=== PATIENT | female | born 1955 | race Caucasian/White ===

== ENCOUNTER 2017-06-07 11:30 | Inpatient (IN) | payer MEDICAID, OTHER ==
[2017-06-07 13:21] LABS: Hematocrit 42.1 % (30.3-42.9); Hemoglobin 13.3 gm/dl (10.1-14.3); Mean Corpuscular HGB Conc 32 % (30-34); Mean Corpuscular Hemoglobin 27 pg (28-32); Mean Corpuscular Volume 86 fl (79-97); Platelet Count 285 K/mm3 (140-440); Red Blood Count 4.93 M/mm3 (3.65-5.03)
[2017-06-07 13:46] LABS: Alanine Aminotransferase 23 units/L (7-56); Albumin 3.8 g/dL (3.9-5); BUN/Creatinine Ratio 22; Blood Urea Nitrogen 13 mg/dL (7-17); Calcium 8.9 mg/dL (8.4-10.2); Hemolysis Index 4; Lipase 32 units/L (13-60)
--- NOTE | 2017-06-07 14:42 | Emergency Department Report ---
- General Chief complaint: Weakness Stated complaint: DIZZINESS Time Seen by Provider: 06/07/17 14:36 Source: family Mode of arrival: Wheelchair Limitations: Language Barrier - History of Present Illness Initial comments: Patient is 61-year-old female that presents emergency room with complaints of dizziness weakness and nausea vomiting 1 week. is at bedside due to leg which barrier. Per patient and patient has not been able to hold any fluids or food down times one week. Patient states he saw her primary care twice and since this started. Patient states yesterday she was given medications of Zofran and Reglan and prednisolone and symptoms have not improved and patient continues to not be able to tolerate by mouth intake. Patient denies past medical history. Patient denies chest pain shortness of breath. Patient denies falls. Patient complains of a headache at 2 out of 10. MD Complaint: generalized weakness -: Sudden Severity: mild (headache) Severity scale (0 -10): 2 Improves with: rest Worsens with: movement, other (by mouth intake) Associated Symptoms: headaches, nausea/vomiting. denies: chest pain, confusion , dark stools, diaphoresis, dysuria, easy bruising, fever/chills, loss of appetite, myalgias, rash, shortness of breath, syncope - Related Data Allergies Allergy/AdvReac Type Severity Reaction Status Date / Time No Known Allergies Allergy Unverified 06/07/17 12:22 ED Review of Systems ROS: Stated complaint: DIZZINESS Other details as noted in HPI Comment: All other systems reviewed and negative Constitutional: weakness. denies: chills, fever Eyes: denies: eye pain, eye discharge, vision change ENT: denies: ear pain, throat pain Respiratory: denies: cough, shortness of breath, wheezing Cardiovascular: denies: chest pain, palpitations Endocrine: no symptoms reported Gastrointestinal: nausea, vomiting. denies: abdominal pain, diarrhea Genitourinary: denies: urgency, dysuria, discharge Musculoskeletal: denies: back pain, joint swelling, arthralgia Skin: denies: rash, lesions Neurological: headache, weakness. denies: paresthesias Psychiatric: denies: anxiety, depression Hematological/Lymphatic: denies: easy bleeding, easy bruising ED Past Medical Hx - Past Medical History Previous Medical History?: No - Surgical History Past Surgical History?: Yes Additional Surgical History: inguinal hernia repair - Family History Family history: no significant - Social History Smoking Status: Never Smoker Substance Use Type: None ED Physical Exam - General Limitations: Physical Limitation General appearance: alert, in no apparent distress - Head Head exam: Present: atraumatic, normocephalic - Eye Eye exam: Present: normal appearance - ENT ENT exam: Present: mucous membranes moist - Neck Neck exam: Present: normal inspection - Respiratory Respiratory exam: Present: normal lung sounds bilaterally. Absent: respiratory distress - Cardiovascular Cardiovascular Exam: Present: regular rate, normal rhythm. Absent: systolic murmur, diastolic murmur, rubs, gallop - GI/Abdominal GI/Abdominal exam: Present: soft, normal bowel sounds - Extremities Exam Extremities exam: Present: normal inspection - Back Exam Back exam: Present: normal inspection - Neurological Exam Neurological exam: Present: alert, oriented X3 - Psychiatric Psychiatric exam: Present: normal affect, normal mood - Skin Skin exam: Present: warm, dry, intact, normal color. Absent: rash ED Course Vital Signs 06/07/17 06/07/17 06/07/17 12:10 14:22 16:08 Temperature 97.9 F 98.4 F Pulse Rate 68 66 Respiratory 16 16 9 L Rate Blood Pressure 167/76 Blood Pressure 134/80 [Left] O2 Sat by Pulse 99 99 Oximetry 06/07/17 06/07/17 06/07/17 16:15 16:25 16:30 Temperature Pulse Rate 66 69 Respiratory 13 16 13 Rate Blood Pressure 148/68 147/64 Blood Pressure [Left] O2 Sat by Pulse 100 99 Oximetry 06/07/17 06/07/17 06/07/17 16:45 17:03 17:15 Temperature Pulse Rate 78 66 66 Respiratory 13 21 17 Rate Blood Pressure 169/80 169/80 152/71 Blood Pressure [Left] O2 Sat by Pulse 100 100 100 Oximetry 06/07/17 06/07/17 06/07/17 17:30 17:45 18:17 Temperature Pulse Rate 69 77 71 Respiratory 18 15 16 Rate Blood Pressure 136/67 151/73 169/80 Blood Pressure [Left] O2 Sat by Pulse 100 99 100 Oximetry 06/07/17 06/07/17 18:30 18:45 Temperature Pulse Rate 69 66 Respiratory 14 14 Rate Blood Pressure 132/54 140/64 Blood Pressure [Left] O2 Sat by Pulse 98 97 Oximetry - Reevaluation(s) Reevaluation #1: Patient more awake . Will try by mouth challenge 06/07/17 17:28 Reevaluation #2: Patient did not tolerate by mouth challenge. 06/07/17 17:39 Reevaluation #3: All results discussed with patient. Patient agreed with plan of care and admission. Will admit patient to hospital for further evaluation and treatment. Hospitalist consulted. 06/07/17 17:40 ED Medical Decision Making - Lab Data Result diagrams: 06/07/17 12:32 06/07/17 12:32 - EKG Data -: EKG Interpreted by In EKG shows normal: sinus rhythm, axis, intervals, QRS complexes, ST-T waves Rate: normal - Radiology Data Radiology results: report reviewed CT results reviewed. - Medical Decision Making Patient 61-year-old female presented for intractable nausea vomiting. Will admit patient for further evaluation and treatment. - Differential Diagnosis gastroenteritis. Nausea/vomiting. Dizziness. Weakness. Critical care attestation.: If time is entered above; I have spent that time in minutes in the direct care of this critically ill patient, excluding procedure time. ED Disposition Clinical Impression: Intractable nausea and vomiting, Dizziness, Headache, Weakness, Gastroenteritis Disposition: 09 OP ADMIT IP TO THIS HOSP Is pt being admited?: Yes Does the pt Need Aspirin: No Condition: Serious Time of Disposition: 17:38
[2017-06-07 14:46] LABS: Anisocytosis 1+; Basophils % (Manual) 0 % (0.0-1.8); Eosinophils % (Manual) 0 % (0.0-4.3); Total Cells Counted 100
[2017-06-07 14:47] LABS: Platelet Estimate Consistent w Auto
--- NOTE | 2017-06-07 15:21 | Cat Scan Report ---
FINAL REPORT PROCEDURE: CT HEAD/BRAIN WO CON TECHNIQUE: Computerized tomography of the head was performed without contrast material. HISTORY: dizziness, weakness COMPARISON: No prior studies are available for comparison. FINDINGS: Brain: Brain density appears normal. No evidence of intracranial hemorrhage. No parenchymal hemorrhage, mass lesions or mass effect are seen. No abnormal extraxial fluid collects or masses are seen. Ventricles: Ventricles are normal size and are midline. Bone Windows: No evidence of skull fracture. Paranasal sinuses: Visualized portions appear clear. Mastoid air cells: Clear IMPRESSION: Negative examination
[2017-06-07] MEDS ORDERED: TORADOL IV ONE (15:31)
--- NOTE | 2017-06-07 15:45 | Cat Scan Report ---
FINAL REPORT PROCEDURE: CT ABDOMEN PELVIS WO CON TECHNIQUE: Computerized axial tomography of the abdomen and pelvis was performed without intravenous contrast. This study is performed without intravascular contrast material and its sensitivity for abdominal and pelvic pathology, including neoplasms, inflammation, abscess, free fluid, thrombosis, arterial dissection and infarction, is reduced compared with a contrast enhanced study. HISTORY: intractable n/v COMPARISON: No prior studies are available for comparison. FINDINGS: Lower Lung paredes: Minimal dependent atelectasis. Lung bases otherwise are clear. Upper Abdomen: Low-density nodules seen adjacent to the right side of the falciform ligament and a low-density nodule anterior aspect left lobe of the liver image 23 series 2 appear to represent small hepatic cyst. This could be confirmed with ultrasound if clinically indicated. The liver is otherwise unremarkable. The gallbladder, the adrenal glands, the pancreas and spleen are unremarkable. Kidneys, Ureters and Urinary bladder: There is a nonobstructing calculus in the upper 3rd of the left kidney posterior laterally measuring 3.2 millimeter. There are 2 additional nonobstructing calculi in the lower half of the left kidney measuring under 2 millimeters which were seen on the coronal reconstructions. The kidneys, the ureters and urinary bladder otherwise are unremarkable. Urinary bladder showed no focal abnormality. Retroperitoneum: Abdominal aorta appears normal per Nonspecific subcentimeter lymph nodes are seen in the retroperitoneum. No pathologically enlarged lymph nodes are identified. Bowel: Minimal diverticulosis seen right side of the colon without evidence of diverticulitis. There is a moderate amount of stool throughout most of the colon. The patient may be constipated. I do not see evidence of bowel obstruction. No focal bowel loop abnormalities are seen with the exception of minimal diverticulosis. Normal-appearing appendix seen in the right lower quadrant directed towards the mid pelvis. No ascites or free intraperitoneal gas is seen. Reproductive organs: Uterus and adnexa are unremarkable. Other: No acute bony abnormalities are seen. IMPRESSION: Small hepatic cyst suspected as described. This could be confirmed with ultrasound if clinically indicated. Nonobstructing renal calculi visualized as described. No hydronephrosis or ureteral calculi are seen. Minimal colonic diverticulosis without evidence of diverticulitis. Stool pattern as described. The patient may be constipated.
[2017-06-07] MEDS ORDERED: NACL 0.9% 1000 ML 1,000 ML IV ONE ×2 (15:55→17:36)
[2017-06-07 16:04] LABS: Bilirubin,Urine NEG (Negative); Blood,Urine NEG (Negative); Color,Urine Straw (Yellow); Protein,Urine <15 mg/dL mg/dL (Negative); Urobilinogen,Urine < 2.0 mg/dL (<2.0); WBC,Urine < 1.0 /HPF (0.0-6.0)
--- NOTE | 2017-06-07 20:44 | History and Physical Report ---
History of Present Illness Chief complaint: weak and confused History of present illness: 61 YO Female with NO PMH presents to ED for evaluation. Pt is unable to provide detailed history, but patient is at bedside and provides histors. per , the patient has experienced multiple episodes of nausea and vomiting over the past 1 week and has been unable to tolerate oral diet over the past several days. Pt was seen by her PCP and treated with zofran, reglan, and prednisone without improvement in symptoms. Pt reports that patient experienced acute onset of headache, weakness, and altered speech this morning. Pt symptoms did not resolve. Pt was later transported by family to [facility] for evaluation. Pt seen and evaluated in ED and found to have symptoms consistent with Acute CVA,as well as SIRS secondary to gestroenteritis. PT admitted to telemetry. Pt outside therapeutic window for TPA upon arrival. Past History Past Medical History: No medical history, other (reviewed) Past Surgical History: hernia repair Social history: , lives with family. denies: smoking, alcohol abuse, prescription drug abuse Family history: no significant family history (reviewed) Medications and Allergies Allergies Allergy/AdvReac Type Severity Reaction Status Date / Time No Known Allergies Allergy Unverified 06/07/17 12:22 Home Medications Medication Instructions Recorded Confirmed Last Taken Type Ondansetron [Zofran Odt] 4 mg PO PRN 06/07/17 06/07/17 Unknown History Ranitidine HCl [Zantac 300 MG TAB] 300 mg PO BID 06/07/17 06/07/17 Unknown History prednisoLONE [Prednisolone] 15 mg PO DAILY 06/07/17 06/07/17 Unknown History Review of Systems ROS unobtainable: due to mental status Exam - Constitutional Vitals: Temp Pulse Resp BP Pulse Ox 98.4 F 66 14 140/64 97 06/07/17 14:22 06/07/17 18:45 06/07/17 18:45 06/07/17 18:45 06/07/17 18:45 General appearance: Present: mild distress - EENT Eyes: Present: PERRL ENT: hearing intact, clear oral mucosa - Neck Neck: Present: supple, normal ROM - Respiratory Respiratory effort: normal Respiratory: bilateral: CTA - Cardiovascular Heart Sounds: Present: S1 & S2. Absent: rub, click - Extremities Extremities: pulses symmetrical, No edema Peripheral Pulses: within normal limits - Abdominal General gastrointestinal: Present: soft, non-tender, non-distended, normal bowel sounds Localized gastrointestinal: tender: diffuse Female genitourinary: Present: normal - Rectal Rectal Exam: normal exam-external/orifice - Integumentary Integumentary: Present: clear, warm, dry - Musculoskeletal Musculoskeletal: generalized weakness - Psychiatric Psychiatric: no intact judgment & insight, no memory intact - Neurologic Neurologic: no gait normal Results - Labs CBC & Chem 7: 06/07/17 12:32 06/07/17 12:32 Labs: Abnormal lab results 06/07/17 06/07/17 Range/Units 12:32 12:32 WBC 14.6 H (4.5-11.0) K/mm3 MCH 27 L (28-32) pg Seg Neuts % (Manual) 90.0 H (40.0-70.0) % Lymphocytes % (Manual) 8.0 L (13.4-35.0) % Seg Neutrophils # Man 13.1 H (1.8-7.7) K/mm3 Creatinine 0.6 L (0.7-1.2) mg/dL Glucose 117 H (65-100) mg/dL Alkaline Phosphatase 33 L (35-129) units/L Albumin 3.8 L (3.9-5) g/dL Assessment and Plan - Patient Problems (1) CVA (cerebral vascular accident) Current Visit: Yes Status: Suspected Qualifiers: Laterality of affected vessel: unspecified Plan to address problem: CVA: Stroke protocol, CT Head, MRI Brain, MRA Brain, Echo, Carotid Doppler, antiplatet therapy, PT/OT/ Speech Therapy, Neuro checks, seizure precautions, EEG. (2) SIRS (systemic inflammatory response syndrome) Current Visit: Yes Status: Acute Plan to address problem: IV antibiotics, supportive care, IVF resuscitation, cbc (3) Encephalopathy Current Visit: Yes Status: Acute Plan to address problem: CT Head, Neuro checks, seizure precautions, (4) Gastroenteritis Current Visit: Yes Status: Acute Plan to address problem: IVF resuscitation therapy, supportive care, serial abdominal exam, CT abdomen pelvis (5) DVT prophylaxis Current Visit: Yes Status: Acute
[2017-06-07] MEDS ORDERED: SODIUM CHLORIDE FLUSH SYRINGE 10 ML IV PRN (20:45)
[2017-06-07] MEDS ORDERED: PHENERGAN PR PRN (20:45)
[2017-06-07] MEDS ORDERED: REGLAN PO PRN (20:45)
[2017-06-07] MEDS ORDERED: PROVENTIL IH PRN (20:45)
[2017-06-07] MEDS ORDERED: DULCOLAX PR PRN (20:45)
[2017-06-07] MEDS ORDERED: ZOFRAN IV PRN (20:45)
[2017-06-07] MEDS ORDERED: MILK OF MAGNESIA PO PRN (20:45)
[2017-06-07] MEDS ORDERED: LEVAQUIN 500MG/100ML 500 MG/100 ML BAG IV ONE (21:14)
[2017-06-07] MEDS: LEVAQUIN 500MG/100ML 500 MG/100 ML BAG IV SCH (21:22)
[2017-06-08] MEDS ORDERED: TYLENOL ONE (05:57)
[2017-06-08] MEDS: TYLENOL PO PRN ×3 (06:00→21:42)
[2017-06-08 06:17] LABS: Chol/HDL Ratio 3.36 %
--- NOTE | 2017-06-08 09:55 | Magnetic Resonance Report ---
MRI BRAIN WITHOUT CONTRAST INDICATION: Stroke. COMPARISON: Yesterday's head CT. FINDINGS: Noncontrast multiplanar and multisequence MRI of the brain demonstrates normal ventricles and sulci without acute infarct, hemorrhage, mass effect or midline shift. No abnormal extra-axial masses or fluid collections. A couple of FLAIR and T2-weighted white matter hyperintensities as measuring 8 mm in the right galdamez radiata, axial series 7, image 17 and a 3-4 mm right inferior ganglionic lacunar infarct may also be present, axial image 13, well appropriate for the patient's age. Normal major intracranial vascular flow voids. Normal posterior fossa structures with symmetric seventh and eighth nerve complexes. Symmetric, grossly unremarkable eye globes. Slight right ethmoid sinusitis. Clear remainder paranasal sinuses and mastoid air cells. Normal midline structures without evidence of Chiari malformation. CONCLUSION: No acute intracranial MRI abnormality, as described. Thank you for the opportunity to participate in this patient's care.
--- NOTE | 2017-06-08 09:57 | Magnetic Resonance Report ---
MRA HEAD WITHOUT CONTRAST INDICATION: Stroke. COMPARISON: None similar. FINDINGS: MRA of the head performed without intravenous contrast and demonstrates no evidence of flow-limiting stenosis, occlusion or vascular malformation. PCOMs not well seen bilaterally. Left vertebral artery dominant. Please note that detection of aneurysms less than 5 mm is limited on this exam. CONCLUSION: Normal study of the augustine of [place]. Thank you for the opportunity to participate in this patient's care.
--- NOTE | 2017-06-08 11:34 | Progress Note ---
Assessment and Plan Assessment and plan: CVA/TIA. Symptoms have completely resolved. CT head negative. MRI/MRA brain, echocardiogram and carotid Dopplers pending. Acute encephalopathy. Resolved. Etiology secondary to above. ? Gastroenteritis. N/V with Abdominal pain. Resolved. CT scan of abdomen and pelvis essentially negative. Leukocytosis. Etiology may be secondary to gastroenteritis. Follow-up CBC in a.m. DVT prophylaxis. Lovenox daily. History Interval history: No new issues overnight. Hospitalist Physical - Constitutional Vitals: Temp Pulse Resp BP Pulse Ox 98.4 F 60 15 145/71 99 06/08/17 11:22 06/08/17 11:22 06/08/17 11:22 06/08/17 11:22 06/08/17 11:22 General appearance: Present: no acute distress - EENT Eyes: Present: PERRL, EOM intact ENT: hearing intact, clear oral mucosa, dentition normal - Neck Neck: Present: supple, normal ROM - Respiratory Respiratory effort: normal Respiratory: bilateral: CTA - Cardiovascular Rhythm: regular Heart Sounds: Present: S1 & S2. Absent: gallop, rub - Extremities Extremities: no ischemia, No edema, Full ROM - Abdominal General gastrointestinal: soft, non-tender, non-distended, normal bowel sounds - Integumentary Integumentary: Present: clear, warm, dry - Neurologic Neurologic: CNII-XII intact, moves all extremities Results - Labs CBC & Chem 7: 06/07/17 12:32 06/07/17 12:32 Labs: Laboratory Last Values WBC 14.6 K/mm3 (4.5-11.0) H 06/07/17 12:32 RBC 4.93 M/mm3 (3.65-5.03) 06/07/17 12:32 Hgb 13.3 gm/dl (10.1-14.3) 06/07/17 12:32 Hct 42.1 % (30.3-42.9) 06/07/17 12:32 MCV 86 fl (79-97) 06/07/17 12:32 MCH 27 pg (28-32) L 06/07/17 12:32 MCHC 32 % (30-34) 06/07/17 12:32 RDW 14.0 % (13.2-15.2) 06/07/17 12:32 Plt Count 285 K/mm3 (140-440) 06/07/17 12:32 Add Manual Diff Complete 06/07/17 12:32 Total Counted 100 06/07/17 12:32 Seg Neutrophils % Hardening Machine Operator 06/07/17 12:32 Seg Neuts % (Manual) 90.0 % (40.0-70.0) H 06/07/17 12:32 Band Neutrophils % 0 % 06/07/17 12:32 Lymphocytes % (Manual) 8.0 % (13.4-35.0) L 06/07/17 12:32 Reactive Lymphs % (Man) 0 % 06/07/17 12:32 Monocytes % (Manual) 2.0 % (0.0-7.3) 06/07/17 12:32 Eosinophils % (Manual) 0 % (0.0-4.3) 06/07/17 12:32 Basophils % (Manual) 0 % (0.0-1.8) 06/07/17 12:32 Metamyelocytes % 0 % 06/07/17 12:32 Myelocytes % 0 % 06/07/17 12:32 Promyelocytes % 0 % 06/07/17 12:32 Blast Cells % 0 % 06/07/17 12:32 Nucleated RBC % Not Reportable 06/07/17 12:32 Seg Neutrophils # Man 13.1 K/mm3 (1.8-7.7) H 06/07/17 12:32 Band Neutrophils # 0.0 K/mm3 06/07/17 12:32 Lymphocytes # (Manual) 1.2 K/mm3 (1.2-5.4) 06/07/17 12:32 Abs React Lymphs (Man) 0.0 K/mm3 06/07/17 12:32 Monocytes # (Manual) 0.3 K/mm3 (0.0-0.8) 06/07/17 12:32 Eosinophils # (Manual) 0.0 K/mm3 (0.0-0.4) 06/07/17 12:32 Basophils # (Manual) 0.0 K/mm3 (0.0-0.1) 06/07/17 12:32 Metamyelocytes # 0.0 K/mm3 06/07/17 12:32 Myelocytes # 0.0 K/mm3 06/07/17 12:32 Promyelocytes # 0.0 K/mm3 06/07/17 12:32 Blast Cells # 0.0 K/mm3 06/07/17 12:32 WBC Morphology Not Reportable 06/07/17 12:32 Hypersegmented Neuts Not Reportable 06/07/17 12:32 Hyposegmented Neuts Not Reportable 06/07/17 12:32 Hypogranular Neuts Not Reportable 06/07/17 12:32 Smudge Cells Not Reportable 06/07/17 12:32 Toxic Granulation Not Reportable 06/07/17 12:32 Toxic Vacuolation Not Reportable 06/07/17 12:32 Dohle Bodies Not Reportable 06/07/17 12:32 Pelger-Huet Anomaly Not Reportable 06/07/17 12:32 Rich Rods Not Reportable 06/07/17 12:32 Platelet Estimate Consistent w auto 06/07/17 12:32 Clumped Platelets Not Reportable 06/07/17 12:32 Plt Clumps, EDTA Not Reportable 06/07/17 12:32 Large Platelets Not Reportable 06/07/17 12:32 Giant Platelets Not Reportable 06/07/17 12:32 Platelet Satelliting Not Reportable 06/07/17 12:32 Plt Morphology Comment Not Reportable 06/07/17 12:32 RBC Morphology Not Reportable 06/07/17 12:32 Dimorphic RBCs Not Reportable 06/07/17 12:32 Polychromasia Not Reportable 06/07/17 12:32 Hypochromasia Not Reportable 06/07/17 12:32 Poikilocytosis Not Reportable 06/07/17 12:32 Anisocytosis 1+ 06/07/17 12:32 Microcytosis Not Reportable 06/07/17 12:32 Macrocytosis Not Reportable 06/07/17 12:32 Spherocytes Not Reportable 06/07/17 12:32 Pappenheimer Bodies Not Reportable 06/07/17 12:32 Sickle Cells Not Reportable 06/07/17 12:32 Target Cells Not Reportable 06/07/17 12:32 Tear Drop Cells Not Reportable 06/07/17 12:32 Ovalocytes Not Reportable 06/07/17 12:32 Helmet Cells Not Reportable 06/07/17 12:32 Peck-Hurlock Bodies Not Reportable 06/07/17 12:32 Constantine Rings Not Reportable 06/07/17 12:32 Gerber Cells Not Reportable 06/07/17 12:32 Bite Cells Not Reportable 06/07/17 12:32 Crenated Cell Not Reportable 06/07/17 12:32 Elliptocytes Not Reportable 06/07/17 12:32 Acanthocytes (Spur) Not Reportable 06/07/17 12:32 Rouleaux Not Reportable 06/07/17 12:32 Hemoglobin C Crystals Not Reportable 06/07/17 12:32 Schistocytes Not Reportable 06/07/17 12:32 Malaria parasites Not Reportable 06/07/17 12:32 Philip Bodies Not Reportable 06/07/17 12:32 Hem Pathologist Commnt No 06/07/17 12:32 Sodium 141 mmol/L (137-145) 06/07/17 12:32 Potassium 4.1 mmol/L (3.6-5.0) 06/07/17 12:32 Chloride 98.6 mmol/L (98-107) 06/07/17 12:32 Carbon Dioxide 29 mmol/L (22-30) 06/07/17 12:32 Anion Gap 18 mmol/L 06/07/17 12:32 BUN 13 mg/dL (7-17) 06/07/17 12:32 Creatinine 0.6 mg/dL (0.7-1.2) L 06/07/17 12:32 Estimated GFR > 60 ml/min 06/07/17 12:32 BUN/Creatinine Ratio 22 % 06/07/17 12:32 Glucose 117 mg/dL (65-100) H 06/07/17 12:32 Lactic Acid 1.70 mmol/L (0.7-2.0) 06/07/17 15:06 Calcium 8.9 mg/dL (8.4-10.2) 06/07/17 12:32 Total Bilirubin < 0.20 mg/dL (0.1-1.2) 06/07/17 12:32 AST 18 units/L (5-40) 06/07/17 12:32 ALT 23 units/L (7-56) 06/07/17 12:32 Alkaline Phosphatase 33 units/L (35-129) L 06/07/17 12:32 Troponin T < 0.010 ng/mL (0.00-0.029) 06/07/17 18:03 Total Protein 6.9 g/dL (6.3-8.2) 06/07/17 12:32 Albumin 3.8 g/dL (3.9-5) L 06/07/17 12:32 Albumin/Globulin Ratio 1.2 % 06/07/17 12:32 Triglycerides 187 mg/dL (2-149) H 06/08/17 04:54 Cholesterol 185 mg/dL (50-199) 06/08/17 04:54 LDL Cholesterol Direct 111 mg/dL (50-130) 06/08/17 04:54 HDL Cholesterol 55 mg/dL (40-59) 06/08/17 04:54 Cholesterol/HDL Ratio 3.36 % 06/08/17 04:54 Lipase 32 units/L (13-60) 06/07/17 12:32 Urine Color Straw (Yellow) 06/07/17 15:30 Urine Turbidity Clear (Clear) 06/07/17 15:30 Urine pH 6.0 (5.0-7.0) 06/07/17 15:30 Ur Specific [place] 1.005 (1.003-1.030) 06/07/17 15:30 Urine Protein <15 mg/dl mg/dL (Negative) 06/07/17 15:30 Urine Glucose (UA) Neg mg/dL (Negative) 06/07/17 15:30 Urine Ketones Neg mg/dL (Negative) 06/07/17 15:30 Urine Blood Neg (Negative) 06/07/17 15:30 Urine Nitrite Neg (Negative) 06/07/17 15:30 Urine Bilirubin Neg (Negative) 06/07/17 15:30 Urine Urobilinogen < 2.0 mg/dL (<2.0) 06/07/17 15:30 Ur Leukocyte Esterase Neg (Negative) 06/07/17 15:30 Urine WBC (Auto) < 1.0 /HPF (0.0-6.0) 06/07/17 15:30 Urine RBC (Auto) 1.0 /HPF (0.0-6.0) 06/07/17 15:30 U Epithel Cells (Auto) < 1.0 /HPF (0-13.0) 06/07/17 15:30
[2017-06-08] MEDS: LEVAQUIN 500MG/100ML 500 MG/100 ML BAG IV SCH (15:41)
[2017-06-08] MEDS: ASPIRIN PO SCH (15:42)
[2017-06-08] MEDS: LOVENOX SUB-Q SCH (21:44)
[2017-06-09 06:36] LABS: Basophils # (Auto) 0.1 K/mm3 (0.0-0.1); Basophils % (Auto) 0.9 % (0.0-1.8); Eosinophils # (Auto) 0.2 K/mm3 (0.0-0.4); Hematocrit 40.1 % (30.3-42.9); Hemoglobin 12.5 gm/dl (10.1-14.3); Lymphocytes # (Auto) 2.3 K/mm3 (1.2-5.4); Mean Corpuscular HGB Conc 31 % (30-34); Mean Corpuscular Hemoglobin 27 pg (28-32); Mean Corpuscular Volume 86 fl (79-97); Monocytes # (Auto) 0.6 K/mm3 (0.0-0.8); Monocytes % (Auto) 11.5 % (0.0-7.3); Platelet Count 308 K/mm3 (140-440); Red Blood Count 4.64 M/mm3 (3.65-5.03); Red Cell Distribution Width 14.1 % (13.2-15.2)
[2017-06-09 07:00] LABS: BUN/Creatinine Ratio 22; Blood Urea Nitrogen 13 mg/dL (7-17); Calcium 8.7 mg/dL (8.4-10.2); Hemolysis Index 19
[2017-06-09] MEDS: LEVAQUIN 500MG/100ML 500 MG/100 ML BAG IV SCH (09:48)
[2017-06-09] MEDS: ASPIRIN PO SCH (09:48)
[2017-06-09] MEDS ORDERED: PNEUMOVAX 23 IM ONE (12:00)
[2017-06-09] MEDS: ANTIVERT PO SCH ×2 (15:08→22:09)
[2017-06-09] MEDS ORDERED: K-DUR PO ONE (16:00)
--- NOTE | 2017-06-09 16:43 | Progress Note ---
Assessment and Plan Assessment and plan: Benign positional vertigo rule out Mnire's disease Symptoms have completely resolved. CT head negative. MRI/MRA brain negative for acute CVA, echocardiogram and carotid Dopplers pending. Trial of meclizine Acute encephalopathy. Resolved. Etiology secondary to above. ? Gastroenteritis. N/V with Abdominal pain. Resolved. CT scan of abdomen and pelvis essentially negative. Leukocytosis. Etiology may be secondary to gastroenteritis. Follow-up CBC in a.m. DVT prophylaxis. Lovenox daily. History Interval history: Patient seen and examined in no acute distress. Still reports dizziness with ringing in the ear. Denies any hearing loss. Hospitalist Physical - Physical exam Narrative exam: VITAL SIGNS: Reviewed. GENERAL: The patient appeared well nourished and normally developed. Vital signs as documented. HEAD: No signs of head trauma. EYES: Pupils are equal. Extraocular motions intact. EARS: Hearing grossly intact. MOUTH: Oropharynx is normal. NECK: No adenopathy, no JVD. CHEST: Chest with clear breath sounds bilaterally. No wheezes, rales, or rhonchi. CARDIAC: Regular rate and rhythm. S1 and S2, without murmurs, gallops, or rubs. VASCULAR: No Edema. Peripheral pulses normal and equal in all extremities. ABDOMEN: Soft, without detectable tenderness. No sign of distention. No rebound or guarding, and no masses palpated. Bowel Sounds normal. MUSCULOSKELETAL: Good range of motion of all major joints. Extremities without clubbing, cyanosis or edema. NEUROLOGIC EXAM: Alert and oriented x 3. No focal sensory or strength deficits. Speech normal. Follows commands. PSYCHIATRIC: Mood normal. SKIN: No rash or lesions. - Constitutional Vitals: Temp Pulse Resp BP Pulse Ox 97.4 F L 70 16 142/77 99 06/09/17 12:14 06/09/17 12:14 06/09/17 12:14 06/09/17 12:14 06/09/17 12:14 General appearance: Present: no acute distress Results - Labs CBC & Chem 7: 06/09/17 05:06 06/09/17 05:06 Labs: Laboratory Last Values WBC 5.6 K/mm3 (4.5-11.0) 06/09/17 05:06 RBC 4.64 M/mm3 (3.65-5.03) 06/09/17 05:06 Hgb 12.5 gm/dl (10.1-14.3) 06/09/17 05:06 Hct 40.1 % (30.3-42.9) 06/09/17 05:06 MCV 86 fl (79-97) 06/09/17 05:06 MCH 27 pg (28-32) L 06/09/17 05:06 MCHC 31 % (30-34) 06/09/17 05:06 RDW 14.1 % (13.2-15.2) 06/09/17 05:06 Plt Count 308 K/mm3 (140-440) 06/09/17 05:06 Lymph % (Auto) 42.0 % (13.4-35.0) H 06/09/17 05:06 [place] % (Auto) 11.5 % (0.0-7.3) H 06/09/17 05:06 Eos % (Auto) 3.0 % (0.0-4.3) 06/09/17 05:06 Baso % (Auto) 0.9 % (0.0-1.8) 06/09/17 05:06 Lymph # 2.3 K/mm3 (1.2-5.4) 06/09/17 05:06 [place] # 0.6 K/mm3 (0.0-0.8) 06/09/17 05:06 Eos # 0.2 K/mm3 (0.0-0.4) 06/09/17 05:06 Baso # 0.1 K/mm3 (0.0-0.1) 06/09/17 05:06 Add Manual Diff Complete 06/07/17 12:32 Total Counted 100 06/07/17 12:32 Seg Neutrophils % 42.6 % (40.0-70.0) 06/09/17 05:06 Seg Neuts % (Manual) 90.0 % (40.0-70.0) H 06/07/17 12:32 Band Neutrophils % 0 % 06/07/17 12:32 Lymphocytes % (Manual) 8.0 % (13.4-35.0) L 06/07/17 12:32 Reactive Lymphs % (Man) 0 % 06/07/17 12:32 Monocytes % (Manual) 2.0 % (0.0-7.3) 06/07/17 12:32 Eosinophils % (Manual) 0 % (0.0-4.3) 06/07/17 12:32 Basophils % (Manual) 0 % (0.0-1.8) 06/07/17 12:32 Metamyelocytes % 0 % 06/07/17 12:32 Myelocytes % 0 % 06/07/17 12:32 Promyelocytes % 0 % 06/07/17 12:32 Blast Cells % 0 % 06/07/17 12:32 Nucleated RBC % Not Reportable 06/07/17 12:32 Seg Neutrophils # 2.4 K/mm3 (1.8-7.7) 06/09/17 05:06 Seg Neutrophils # Man 13.1 K/mm3 (1.8-7.7) H 06/07/17 12:32 Band Neutrophils # 0.0 K/mm3 06/07/17 12:32 Lymphocytes # (Manual) 1.2 K/mm3 (1.2-5.4) 06/07/17 12:32 Abs React Lymphs (Man) 0.0 K/mm3 06/07/17 12:32 Monocytes # (Manual) 0.3 K/mm3 (0.0-0.8) 06/07/17 12:32 Eosinophils # (Manual) 0.0 K/mm3 (0.0-0.4) 06/07/17 12:32 Basophils # (Manual) 0.0 K/mm3 (0.0-0.1) 06/07/17 12:32 Metamyelocytes # 0.0 K/mm3 06/07/17 12:32 Myelocytes # 0.0 K/mm3 06/07/17 12:32 Promyelocytes # 0.0 K/mm3 06/07/17 12:32 Blast Cells # 0.0 K/mm3 06/07/17 12:32 WBC Morphology Not Reportable 06/07/17 12:32 Hypersegmented Neuts Not Reportable 06/07/17 12:32 Hyposegmented Neuts Not Reportable 06/07/17 12:32 Hypogranular Neuts Not Reportable 06/07/17 12:32 Smudge Cells Not Reportable 06/07/17 12:32 Toxic Granulation Not Reportable 06/07/17 12:32 Toxic Vacuolation Not Reportable 06/07/17 12:32 Dohle Bodies Not Reportable 06/07/17 12:32 Pelger-Huet Anomaly Not Reportable 06/07/17 12:32 Rich Rods Not Reportable 06/07/17 12:32 Platelet Estimate Consistent w auto 06/07/17 12:32 Clumped Platelets Not Reportable 06/07/17 12:32 Plt Clumps, EDTA Not Reportable 06/07/17 12:32 Large Platelets Not Reportable 06/07/17 12:32 Giant Platelets Not Reportable 06/07/17 12:32 Platelet Satelliting Not Reportable 06/07/17 12:32 Plt Morphology Comment Not Reportable 06/07/17 12:32 RBC Morphology Not Reportable 06/07/17 12:32 Dimorphic RBCs Not Reportable 06/07/17 12:32 Polychromasia Not Reportable 06/07/17 12:32 Hypochromasia Not Reportable 06/07/17 12:32 Poikilocytosis Not Reportable 06/07/17 12:32 Anisocytosis 1+ 06/07/17 12:32 Microcytosis Not Reportable 06/07/17 12:32 Macrocytosis Not Reportable 06/07/17 12:32 Spherocytes Not Reportable 06/07/17 12:32 Pappenheimer Bodies Not Reportable 06/07/17 12:32 Sickle Cells Not Reportable 06/07/17 12:32 Target Cells Not Reportable 06/07/17 12:32 Tear Drop Cells Not Reportable 06/07/17 12:32 Ovalocytes Not Reportable 06/07/17 12:32 Helmet Cells Not Reportable 06/07/17 12:32 [place] Bodies Not Reportable 06/07/17 12:32 [place] Rings Not Reportable 06/07/17 12:32 [place] Cells Not Reportable 06/07/17 12:32 Bite Cells Not Reportable 06/07/17 12:32 Crenated Cell Not Reportable 06/07/17 12:32 Elliptocytes Not Reportable 06/07/17 12:32 Acanthocytes (Spur) Not Reportable 06/07/17 12:32 Rouleaux Not Reportable 06/07/17 12:32 Hemoglobin C Crystals Not Reportable 06/07/17 12:32 Schistocytes Not Reportable 06/07/17 12:32 Malaria parasites Not Reportable 06/07/17 12:32 [place] Bodies Not Reportable 06/07/17 12:32 Hem Pathologist Commnt No 06/07/17 12:32 Sodium 141 mmol/L (137-145) 06/09/17 05:06 Potassium 3.2 mmol/L (3.6-5.0) L D 06/09/17 05:06 Chloride 100.1 mmol/L (98-107) 06/09/17 05:06 Carbon Dioxide 26 mmol/L (22-30) 06/09/17 05:06 Anion Gap 18 mmol/L 06/09/17 05:06 BUN 13 mg/dL (7-17) 06/09/17 05:06 Creatinine 0.6 mg/dL (0.7-1.2) L 06/09/17 05:06 Estimated GFR > 60 ml/min 06/09/17 05:06 BUN/Creatinine Ratio 22 % 06/09/17 05:06 Glucose 118 mg/dL (65-100) H 06/09/17 05:06 Lactic Acid 1.70 mmol/L (0.7-2.0) 06/07/17 15:06 Calcium 8.7 mg/dL (8.4-10.2) 06/09/17 05:06 Total Bilirubin < 0.20 mg/dL (0.1-1.2) 06/07/17 12:32 AST 18 units/L (5-40) 06/07/17 12:32 ALT 23 units/L (7-56) 06/07/17 12:32 Alkaline Phosphatase 33 units/L (35-129) L 06/07/17 12:32 Troponin T < 0.010 ng/mL (0.00-0.029) 06/07/17 18:03 Total Protein 6.9 g/dL (6.3-8.2) 06/07/17 12:32 Albumin 3.8 g/dL (3.9-5) L 06/07/17 12:32 Albumin/Globulin Ratio 1.2 % 06/07/17 12:32 Triglycerides 187 mg/dL (2-149) H 06/08/17 04:54 Cholesterol 185 mg/dL (50-199) 06/08/17 04:54 LDL Cholesterol Direct 111 mg/dL (50-130) 06/08/17 04:54 HDL Cholesterol 55 mg/dL (40-59) 06/08/17 04:54 Cholesterol/HDL Ratio 3.36 % 06/08/17 04:54 Lipase 32 units/L (13-60) 06/07/17 12:32 Urine Color Straw (Yellow) 06/07/17 15:30 Urine Turbidity Clear (Clear) 06/07/17 15:30 Urine pH 6.0 (5.0-7.0) 06/07/17 15:30 Ur Specific [place] 1.005 (1.003-1.030) 06/07/17 15:30 Urine Protein <15 mg/dl mg/dL (Negative) 06/07/17 15:30 Urine Glucose (UA) Neg mg/dL (Negative) 06/07/17 15:30 Urine Ketones Neg mg/dL (Negative) 06/07/17 15:30 Urine Blood Neg (Negative) 06/07/17 15:30 Urine Nitrite Neg (Negative) 06/07/17 15:30 Urine Bilirubin Neg (Negative) 06/07/17 15:30 Urine Urobilinogen < 2.0 mg/dL (<2.0) 06/07/17 15:30 Ur Leukocyte Esterase Neg (Negative) 06/07/17 15:30 Urine WBC (Auto) < 1.0 /HPF (0.0-6.0) 06/07/17 15:30 Urine RBC (Auto) 1.0 /HPF (0.0-6.0) 06/07/17 15:30 U Epithel Cells (Auto) < 1.0 /HPF (0-13.0) 06/07/17 15:30 - Imaging and Cardiology MRI - head: image reviewed (no evidence of CVA)
[2017-06-09] MEDS: NACL 0.9% 1000 ML 1,000 ML IV SCH (17:30)
[2017-06-09] MEDS: LOVENOX SUB-Q SCH (22:08)
[2017-06-10] MEDS: NACL 0.9% 1000 ML 1,000 ML IV SCH (03:53)
[2017-06-10] MEDS: ANTIVERT PO SCH ×3 (05:37→13:56)
[2017-06-10 08:54] VITALS: BP 154/94
[2017-06-10] MEDS: ASPIRIN PO SCH (09:42)
[2017-06-10] MEDS ORDERED: LEVAQUIN PO SCH (10:00)
--- NOTE | 2017-06-10 11:50 | Discharge Summary ---
Providers - Providers Date of Admission: 06/07/17 20:45 Attending physician: VANNA AYON MD 06/07/17 20:45 Occupational Therapy Evaluate and Treat [CONS] Routine Comment: Reason For Exam: Neuro deficits Physical Therapy Evaluation and Treat [CONS] Routine Comment: Reason For Exam: Neuro deficits 06/07/17 20:46 Speech Therapy Evaluation and Treat [CONS] Routine Reason For Exam: swallow eval Primary care physician: FURNACE FEEDER Hospitalization Reason for admission: persistent nausea vomiting with altered mental status Condition: Serious Hospital course: 61 YO Female with NO PMH presents to ED for evaluation. Pt is unable to provide detailed history, but patient is at bedside and provides histors. per , the patient has experienced multiple episodes of nausea and vomiting over the past 1 week and has been unable to tolerate oral diet over the past several days. Pt was seen by her PCP and treated with zofran, reglan, and prednisone without improvement in symptoms. Pt reports that patient experienced acute onset of headache, weakness, and altered speech this morning. Pt symptoms did not resolve. Pt was later transported by family to [facility] for evaluation. Pt seen and evaluated in ED and found to have symptoms consistent with Acute CVA,as well as SIRS secondary to gestroenteritis. PT admitted to telemetry. Pt outside therapeutic window for TPA upon arrival. On reevaluation following imaging studies which were negative the patient reported that she gets dizzy with movements and also has some ringing in the left ear exam was grossly normal. Patient was started on trial meclizine and some IV fluids with remarkable improvement. Ringing in resolved. She does complain of indigestion which also resolved. She is clinically stable at this time for discharge. Of advised outpatient evaluation for possible endoscopy if gastroenteritis returns. Leukocytosis also resolved Benign positional vertigo with possible Mnire's disease Acute encephalopathy. Gastroenteritis. Leukocytosis. Disposition: - TO HOME OR SELFCARE Time spent for discharge: 35 mins Core Measure Documentation - Palliative Care Palliative Care/ Comfort Measures: Not Applicable - Core Measures Any of the following diagnoses?: none - VTE Discharge Requirements Deep Vein Thrombosis/Pulmonary Embolism Present on Admission: No Exam - Physical Exam Narrative exam: VITAL SIGNS: Reviewed. GENERAL: The patient appeared well nourished and normally developed. Vital signs as documented. HEAD: No signs of head trauma. EYES: Pupils are equal. Extraocular motions intact. no nystagmus EARS: Hearing grossly intact. MOUTH: Oropharynx is normal. NECK: No adenopathy, no JVD. CHEST: Chest with clear breath sounds bilaterally. No wheezes, rales, or rhonchi. CARDIAC: Regular rate and rhythm. S1 and S2, without murmurs, gallops, or rubs. VASCULAR: No Edema. Peripheral pulses normal and equal in all extremities. ABDOMEN: Soft, without detectable tenderness. No sign of distention. No rebound or guarding, and no masses palpated. Bowel Sounds normal. MUSCULOSKELETAL: Good range of motion of all major joints. Extremities without clubbing, cyanosis or edema. NEUROLOGIC EXAM: Alert and oriented x 3. No focal sensory or strength deficits. Speech normal. Follows commands. PSYCHIATRIC: Mood normal. SKIN: No rash or lesions. - Constitutional Vitals: Temp Pulse Resp BP Pulse Ox 98.1 F 78 18 154/94 98 06/10/17 07:54 06/10/17 10:00 06/10/17 10:00 06/10/17 07:54 06/10/17 10:00 Plan Activity: advance as tolerated, fall precautions Diet: low salt Special Instructions: record daily BP diary Follow up with: ANTONY RAMEY MD [Staff Physician] - 7 Days PRIMARY CARE, [Primary Care Provider] - 3-5 Days Prescriptions: Ciprofloxacin/Hydrocortisone [Cipro Hc Otic Suspension] 10 ml OT Q4HR 4 Days #1 drops.susp Meclizine [Antivert] 12.5 mg PO BID PRN #10 tablet PRN Reason: Vertigo
--- NOTE | 2017-06-17 17:18 | Vascular Lab Report ---
CAROTID DUPLEX STUDY: RIGHT PSVEDV CCA PROX:[id number] CCA DIST:[id number] ICA PROX:7523 ICA MID:9635 ICA [id number] ECA: 97 VERT: 48 14 LEFT PSVEDV CCA PROX:9224 CCA DIST:9824 ICA PROX:7421 ICA MID:8632 ICA DIST:8329 ECA: 98 VERT: 81 24 REASON FOR EXAM: Stroke. COMMENTS ON THE RIGHT: Doppler frequency analysis is consistent with 16 to 49 percent diameter reduction of the internal carotid artery. Minimal amount of plaque is seen. The common carotid artery is patent. The external carotid artery is patent. The vertebral artery has antegrade flow. COMMENTS ON THE LEFT: Doppler frequency analysis is consistent with 16 to 49 percent diameter reduction of the internal carotid artery. Minimal amount of plaque is seen. The common carotid artery is patent. The external carotid artery is patent. The vertebral artery has antegrade flow. IMPRESSION: Less than 50% diameter reduction in the internal carotid arteries bilaterally.
== END 2017-06-10 16:23 | disposition home or self-care (01) | DRG 149 ==
LOC: ED 11:30 → 4A 20:45
PROVIDERS: ADMIT Internal Medicine; ATTEND Internal Medicine
DX: H81.09 Meniere's disease, unspecified ear (principal); G93.40 Encephalopathy, unspecified; R65.10 Systemic inflammatory response syndrome (SIRS) of non-infectious origin without acute organ dysfunction; K52.9 Noninfective gastroenteritis and colitis, unspecified; Z79.899 Other long term (current) drug therapy; Z79.1 Long term (current) use of non-steroidal anti-inflammatories (NSAID)
CPT/HCPCS: 36415; 70450; 70544; 70551; 74176; 80048; 80053; 80061; 81001; 82140; 83690; 84484; 85007; 85025; 90732; 93005; 93010; 93306; 93880; 95819; G8996-GN; G8997-GN; G8998-GN; J1650; J1885; J1956; J2405; J7030

== ENCOUNTER 2019-02-23 10:09 | Emergency (ER) | payer OTHER | END 2019-02-23 16:56 | disposition home or self-care (01) | LOC: ED 10:09 | CPT/HCPCS: 36415; 80053; 81001; 85025 ==